=== PATIENT | male | born 1995 | race Caucasian/White ===

== ENCOUNTER 2025-01-31 22:13 | Emergency (ER) | payer SELFPAY ==
[~2025-01-31] VITALS: Ht 175.3 cm; Wt 73.0 kg
[2025-01-31 22:20] VITALS: O2SAT 100
[2025-01-31] MEDS: LIDOCAINE HCL 1% 20ML VIAL INFIL ONE (23:15)
[2025-01-31] MEDS: BACITRACIN ZINC OINT UDPKT TOP ONE (23:15)
[2025-01-31] MEDS: ACETAMINOPHEN 500MG TABLET PO ONE (23:15)
[2025-02-01] MEDS ORDERED: IBUP-1455 MT (02:43)
[2025-02-01] MEDS ORDERED: BO1 TP (02:43)
[2025-02-01 03:25] VITALS: BP 121/76; PULSE 87; RESP 17; TEMP 36.9; O2SAT 98
== END 2025-02-01 03:27 | disposition home or self-care (01) ==
LOC: ER 22:13
DX: S01.81XA Laceration without foreign body of other part of head, initial encounter (principal); J34.2 Deviated nasal septum; Z90.49 Acquired absence of other specified parts of digestive tract; W01.0XXA Fall on same level from slipping, tripping and stumbling without subsequent striking against object, initial encounter; Y93.89 Activity, other specified; Y92.89 Other specified places as the place of occurrence of the external cause; Y99.8 Other external cause status
CPT/HCPCS: 70450; 70486; 12015; 99284; J2003; Z7610

== ENCOUNTER 2025-02-08 16:33 | Emergency (ER) | payer SELFPAY ==
[~2025-02-08] VITALS: Ht 160 cm; Wt 72.0 kg
[~2025-02-08 16:33] MED LIST: BO1 TP; IBUP-1455 MT
[2025-02-08 17:23] VITALS: O2SAT 99
[2025-02-08 20:01] VITALS: BP 122/77; PULSE 89; RESP 14; TEMP 36.8; O2SAT 100
== END 2025-02-08 20:23 | disposition home or self-care (01) ==
LOC: ER 16:33
DX: S01.81XD Laceration without foreign body of other part of head, subsequent encounter (principal); Z90.49 Acquired absence of other specified parts of digestive tract; X58.XXXD Exposure to other specified factors, subsequent encounter
CPT/HCPCS: 99282